=== PATIENT | male | born 1985 | race Caucasian/White ===

== ENCOUNTER 2017-02-09 20:44 | Emergency (ER) | payer MEDICAID ==
[~2017-02-09] VITALS: Ht 165.1 cm; Wt 76.7 kg
[2017-02-09 21:30] VITALS: BP 124/69
--- NOTE | 2017-02-09 21:46 | NUR ---
TO ER OF3
--- NOTE | 2017-02-09 21:50 | NUR ---
PT BIB FAMILY C/O LT 1ST/THUMB PAIN S/P [employer] AT 1800HOURS AND ACCIDENTALLY CUT HIS LEFT THUMB .BLEEDING CONTROLLED , UTD WITH TETANUS VACCINES. FULL A.R.O.M. NOTED. CAP REFILL-IMM. PAIN 12/21. AAOX4, PERRLA, LUNG CL BILAT. ER MD TO [facility], ALL ORDER EXECUTED.
--- NOTE | 2017-02-09 22:43 | NUR ---
Patient being evaluated by physician.
[2017-02-09 23:47] VITALS: BP 127/76
--- NOTE | 2017-02-09 23:47 | NUR ---
Patient discharged with v/s stable. Written and verbal after care instructions given and explained. Patient alert, oriented and verbalized understanding of instructions. Ambulatory with steady gait. All questions addressed prior to discharge. ID band removed. Patient advised to follow up with PMD. Rx of KEFLEX 500MG QID given. Patient educated on indication of medication including possible reaction and side effects. Opportunity to ask questions provided and answered.
== END 2017-02-09 23:50 | disposition home or self-care (01) ==
LOC: MED 20:44
CPT/HCPCS: 12001; 99283